=== PATIENT | male | born 2000 | race Caucasian/White ===

== ENCOUNTER 2023-11-06 23:30 | Emergency (ER) | payer OTHER ==
[~2023-11-06] VITALS: Ht 157.5 cm; Wt 54.4 kg
[2023-11-07] MEDS ORDERED: Ketorolac Tromethamine 30mg Vial IV ONE (01:30)
[2023-11-07] MEDS ORDERED: Ketorolac Tromethamine 30mg Vial IM ONE (01:35)
== END 2023-11-07 01:50 | disposition home or self-care (01) ==
LOC: ER 23:30
DX: S69.92XA Unspecified injury of left wrist, hand and finger(s), initial encounter (principal); M25.532 Pain in left wrist; W19.XXXA Unspecified fall, initial encounter
CPT/HCPCS: 73110; J1885

== ENCOUNTER 2024-12-23 14:56 | Emergency (ER) | payer OTHER ==
[~2024-12-23] VITALS: Ht 157.5 cm; Wt 27.3 kg
[2024-12-23] MEDS ORDERED: Ondansetron HCl 2 MG / ML 2ML Vial IV ONE (15:10)
[2024-12-23] MEDS ORDERED: NS 1,000 ML IV SCH (15:10)
[2024-12-23 15:40] LABS: BASOPHILS ABSOLUTE AUTO 0.03 K/mm3 (0.00-0.23); BASOPHILS PERCENT AUTO 0 % (0-2); EOSINOPHILS ABSOLUTE AUTO 0.03 K/mm3 (0.00-0.68); EOSINOPHILS PERCENT AUTO 0 % (0-6); Hematocrit 46.4 % (37.0-53.0); Hemoglobin 16.2 g/dL (13.5-17.5); IMMATURE GRAN ABSOLUTE AUTO 0.03 K/mm3 (0.00-0.10); IMMATURE GRAN PERCENT AUTO 0 % (0-1); LYMPHOCYTES ABSOLUTE AUTO 1.39 K/mm3 (0.84-5.20); LYMPHOCYTES PERCENT AUTO 16 % (21-46); MONOCYTES PERCENT AUTO 11 % (4-13); Mean Corpuscular HGB 32.1 pg (26.0-34.0); Mean Corpuscular HGB Conc 34.9 g/dL (31.5-36.5); Mean Corpuscular Volume 92 fL (80-100); Mean Platelet Volume 10.2 fL (9.1-12.4); NEUTROPHILS ABSOLUTE AUTO 6.07 K/mm3 (1.96-9.15); NEUTROPHILS PERCENT AUTO 72 % (41-73); Platelet Count 247 K/mm3 (150-400); RDW Coefficient Variation 12.4 % (11.7-14.2); RDW Standard Deviation 41.5 fL (35.1-46.3); Red Blood Cell Count 5.04 M/mm3 (4.30-5.90); White Blood Cell Count 8.45 K/mm3 (4.00-11.30)
[2024-12-23 16:02] LABS: Albumin, Blood 4.7 g/dL (3.4-5.0); Albumin/Globulin Ratio 1.5 (0.8-1.8); Bilirubin, Total 2.4 mg/dL (0.1-1.0); Bun/Creatinine Ratio 11.4 (12.0-20.0); Calcium, Blood 9.7 mg/dL (8.5-10.1); Creatinine, Blood 0.97 mg/dL (0.60-1.20); Globulin, Blood 3.1 g/dL (2.2-4.0); Potassium, Blood 3.7 mmol/L (3.5-5.5); Total Protein, Blood 7.8 g/dL (6.4-8.2)
[2024-12-23 16:27] LABS: Source, Urine Clean Catch
[2024-12-23 16:34] LABS: Appearance, Urine Hazy (Clear); Bilirubin, Urine Neg (Neg); Blood, Urine 5+ (Neg); Color, Urine Yellow (P-Yellow); Glucose Qualitative, Urine Neg (Neg); Ketones, Urine Neg (Neg); Leukocyte Esterase, Urine Neg (Neg); Nitrite, Urine Neg (Neg); Protein, Urine 2+ (Neg); Urobilinogen, Urine NORM (Normal)
[2024-12-23 16:47] LABS: Mucus Light (0-Heavy); Red Blood Cells, Urine TNTC /hpf (0-2); White Blood Cells, Urine 0-2 /hpf (0-5)
[2024-12-23 16:48] LABS: Bacteria Mod /hpf; Squamous Epithelial Cells Rare /hpf (Few)
[2024-12-23] MEDS ORDERED: Ketorolac Tromethamine 15mg Vial IV ONE (17:25)
[2024-12-23] MEDS ORDERED: Tamsulosin HCl 0.4 MG Cap PO ONE (17:35)
[2024-12-23] MEDS ORDERED: ONDA4ODT MM (17:35)
[2024-12-23] MEDS ORDERED: IBUP600 PO (17:35)
[2024-12-23] MEDS ORDERED: Flomax0.4 MG PO (17:35)
[2024-12-23] MEDS ORDERED: Mag Hydrox/AL Hydrox/Simeth 30 ML UDC PO ONE (17:45)
== END 2024-12-23 17:48 | disposition home or self-care (01) ==
LOC: ER 14:56
PROVIDERS: Emergency Medicine
DX: N13.2 Hydronephrosis with renal and ureteral calculous obstruction (principal); K21.9 Gastro-esophageal reflux disease without esophagitis
CPT/HCPCS: 74177; 80053; 81001; 85025; 87086; 96374-59; 96375; 99284-25; A9270; J1885; J2405; J7030; Q9967

== ENCOUNTER 2024-12-26 04:19 | Emergency (ER) | payer OTHER ==
[~2024-12-26] VITALS: Ht 157.5 cm; Wt 65.8 kg
[~2024-12-26 04:19] MED LIST: Flomax0.4 MG PO; IBUP600 PO; ONDA4ODT MM
[2024-12-26] MEDS ORDERED: Pantoprazole Sodium 40 MG Injection IV ONE (04:35)
[2024-12-26] MEDS ORDERED: Metoclopramide HCl 5MG / ML 2ML Vial IV ONE (04:35)
[2024-12-26] MEDS ORDERED: FentaNYL Citrate 50 MCG/ML 2 ML Injection IV ONE (04:35)
[2024-12-26 04:43] LABS: BASOPHILS ABSOLUTE AUTO 0.01 K/mm3 (0.00-0.23); BASOPHILS PERCENT AUTO 0 % (0-2); EOSINOPHILS ABSOLUTE AUTO 0.01 K/mm3 (0.00-0.68); EOSINOPHILS PERCENT AUTO 0 % (0-6); Hematocrit 43.4 % (37.0-53.0); Hemoglobin 15.2 g/dL (13.5-17.5); IMMATURE GRAN ABSOLUTE AUTO 0.05 K/mm3 (0.00-0.10); IMMATURE GRAN PERCENT AUTO 0 % (0-1); LYMPHOCYTES ABSOLUTE AUTO 0.67 K/mm3 (0.84-5.20); LYMPHOCYTES PERCENT AUTO 6 % (21-46); MONOCYTES ABSOLUTE AUTO 1.04 K/mm3 (0.16-1.47); MONOCYTES PERCENT AUTO 9 % (4-13); Mean Corpuscular HGB Conc 35.0 g/dL (31.5-36.5); Mean Corpuscular Volume 91 fL (80-100); NEUTROPHILS ABSOLUTE AUTO 9.38 K/mm3 (1.96-9.15); NEUTROPHILS PERCENT AUTO 84 % (41-73); NRBC ABSOLUTE 0.00 K/mm3 (0.00-0.02); NRBC Auto 0.0 /100 WBC (0.0-0.2); Platelet Count 209 K/mm3 (150-400); RDW Coefficient Variation 12.1 % (11.7-14.2); RDW Standard Deviation 40.3 fL (35.1-46.3)
[2024-12-26] MEDS ORDERED: NS 500 ML IV SCH (04:45)
[2024-12-26 05:03] LABS: Alanine Aminotransfer (ALT/SGP 33.0 U/L (12-78); Albumin, Blood 4.2 g/dL (3.4-5.0); Albumin/Globulin Ratio 1.3 (0.8-1.8); Anion Gap 10.0 mmol/L (3-11); Aspartate Aminotrans (AST/SGOT 27.0 U/L (12-37); Bilirubin, Total 3.0 mg/dL (0.1-1.0); Blood Urea Nitrogen 20.0 mg/dL (8-24); CO2, Blood 27.0 mmol/L (21-32); Calcium, Blood 9.1 mg/dL (8.5-10.1); Chloride, Blood 102.0 mmol/L (98-108); Creatinine, Blood 1.15 mg/dL (0.60-1.20); Globulin, Blood 3.2 g/dL (2.2-4.0); Glucose, Blood 142.0 mg/dL (70-99); Potassium, Blood 3.8 mmol/L (3.5-5.5); Sodium, Blood 135.0 mmol/L (136-145); Total Protein, Blood 7.4 g/dL (6.4-8.2)
[2024-12-26] MEDS ORDERED: Protonix40 MG PO (05:09)
== END 2024-12-26 06:41 | disposition home or self-care (01) ==
LOC: ER 04:19
PROVIDERS: Emergency Medicine
DX: K29.70 Gastritis, unspecified, without bleeding (principal); F43.10 Post-traumatic stress disorder, unspecified
CPT/HCPCS: 51700; 80053; 83690; 85025; 93005; 93010; 96360-59; 96374; 96375; 99284-25; J2470; J2765; J3010; J7030